=== PATIENT | male | born 1970 | race Caucasian/White ===

== ENCOUNTER 2018-01-30 03:26 | Emergency (ER) | payer BC ==
[2018-01-30] MEDS ORDERED: IBUPROFEN 800 MG TAB PO ONE (03:32)
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
[2018-01-30 04:49] VITALS: BP 138/105
== END 2018-01-30 04:49 | disposition home or self-care (01) ==
LOC: EDUNIT#
DX: S16.1XXA Strain of muscle, fascia and tendon at neck level, initial encounter (principal); F17.200 Nicotine dependence, unspecified, uncomplicated; V48.9XXA Unspecified car occupant injured in noncollision transport accident in traffic accident, initial encounter; Y92.411 Interstate highway as the place of occurrence of the external cause